=== PATIENT | male | born 1955 | race Caucasian/White ===

== ENCOUNTER 2017-02-17 21:48 | Emergency (ER) | payer BC ==
[2017-02-17] MEDS ORDERED: Albuterol/Ipratropium NEB.SOL* Albuterol 2.5 MG/Ipratropium 0.5 MG 3 ML INH SCH (23:00)
[2017-02-17] MEDS ORDERED: Albuterol 0.5% CONC NEB.SOL* 5 MG/ML 20 ml BOT ONE (23:04)
[2017-02-17] MEDS ORDERED: Ipratropium 0.5MG/2.5ML NEB* 0.5 MG/2.5 ML NEB.SOLN ONE (23:05)
[2017-02-17] MEDS ORDERED: Albuterol (2.5 MG) 0.5 % CONC 2.5 MG/0.5 ML NEB.SOLN INH ONE (23:08)
[2017-02-17] MEDS ORDERED: Ipratropium 0.5MG/2.5ML NEB* 0.5 MG/2.5 ML NEB.SOLN INH ONE (23:09)
--- NOTE | 2017-02-17 23:12 | ED ---
Rayray Hahn Salem, scribed for Jason Peoples MD on 02/17/17 at 2252 . Shortness of Breath - HPI Summary HPI Summary: Patient is a 61 y/o male who presents to the ED with SOB for the past 3 days. He reports coughing productive for green and brown sputum. He also reports gurgling when breathing and shakes [employer]. Pt takes breathing treatments at home typically and also did today [employer] with little alleviation. He visited his PCP today and received an abx shot, but was not able to pickle pumper abx px from pharmacy before it closed. He denies receiving a CXR at his PCPs office. - History of Current Complaint Chief Complaint: EDShortnessOfBreath Time Seen by Provider: 02/17/17 22:46 Hx Obtained From: Patient Onset/Duration: Gradual Onset, Lasting Days, Still Present Timing: Constant Current Severity: Moderate Aggrevating Factors: Nothing Alleviating Factors: Nothing Associated Signs & Symptoms: Cough (Productive) - Green and brown sputum. - Allergy/Home Medications Allergies/Adverse Reactions: Allergies Allergy/AdvReac Type Severity Reaction Status Date / Time Morphine Allergy Intermediate Vomiting Verified 03/13/16 21:30 environmental Allergy Congestion Uncoded 03/13/16 21:30 PMH/Surg Hx/FS Hx/Imm Hx Endocrine/Hematology History: Denies: Hx Diabetes, Hx Thyroid Disease Cardiovascular History: Denies: Hx Congestive Heart Failure, Hx Hypertension, Hx Pacemaker/ICD Respiratory History: Reports: Hx Asthma, Hx Seasonal Allergies, Hx Sleep Apnea - current CPAP user Denies: Hx Chronic Obstructive Pulmonary Disease (COPD) GI History: Reports: Hx Gastroesophageal Reflux Disease, Other GI Disorders - acid reflux Denies: Hx Ulcer History: Denies: Hx Renal Disease Musculoskeletal History: Reports: Hx Back Problems - chronic back pain, Other Musculoskeletal History - back pain r/t fall Sensory History: Denies: Hx Hearing Aid Neurological History: Reports: Other Neuro Impairments/Disorders - hx vertigo/ dizziness Psychiatric History: Denies: Hx Panic Disorder - Surgical History Surgery Procedure, Year, and Place: x2 sinus; neck removal cyst (benign) Infectious Disease History: Reports: Hx Clostridium Difficile Denies: Hx Hepatitis, Hx Human Immunodeficiency Virus (HIV), Hx of Known/ Suspected MRSA, Hx Shingles, Hx Tuberculosis, Hx Known/Suspected VRE, Hx Known/ Suspected VRSA, History Other Infectious Disease, Traveled Outside the [place] in Last 30 Days - Family History Known Family History: Positive: Other - Emphysema - father. Negative: Cardiac Disease, Diabetes - Social History Alcohol Use: None Hx Substance Use: No Substance Use Type: Reports: None Hx Tobacco Use: No Smoking Status (MU): Never Smoked Tobacco Have You Smoked in the Last Year: No Review of Systems Negative: Fever Positive: Shortness Of Breath, Cough - Productive for green and brown sputum. All Other Systems Reviewed And Are Negative: Yes Physical Exam Triage Information Reviewed: Yes Vital Signs On Initial Exam: Initial Vitals Temp Pulse Resp BP Pulse Ox 99.9 F 90 20 116/61 95 02/17/17 21:51 02/17/17 21:51 02/17/17 21:51 02/17/17 21:51 02/17/17 21:51 Vital Signs Reviewed: Yes Appearance: Positive: Well-Appearing, No Pain Distress Skin: Positive: Warm Head/Face: Positive: Normal Head/Face Inspection Eyes: Positive: JACQUELINE ENT: Positive: Hearing grossly normal Neck: Positive: Supple Respiratory/Lung Sounds: Positive: Wheezes - few bilat Cardiovascular: Positive: RRR Abdomen Description: Positive: Nontender, Soft Bowel Sounds: Positive: Present Musculoskeletal: Positive: Strength/ROM Intact Neurological: Positive: Alert, Oriented to Person Place, Time Psychiatric: Positive: Affect/Mood Appropriate - [place] Coma Scale Coma Scale Total: 15 Diagnostics - Vital Signs Vital Signs Temp Pulse Resp BP Pulse Ox 02/17/17 22:29 100.0 F 90 22 140/66 92 02/17/17 21:51 99.9 F 90 20 116/61 95 - Laboratory Result Diagrams: 02/17/17 23:00 02/17/17 23:00 Lab Statement: Any lab studies that have been ordered have been reviewed, and results considered in the medical decision making process. - Radiology CXR Radiology Interpretation Completed By: ED Physician - Negative. Re-Evaluation - Re-Evaluation First Eval Change: Improved Course/Dx - Diagnoses Provider Diagnoses: Bronchitis Discharge - Discharge Plan Condition: Stable Disposition: HOME Patient Education Materials: Acute Bronchitis (ED) Referrals: Cheo Leyva DO [Primary Care Provider] - Additional Instructions: Please continue the antibiotics previously prescribed to you by your primary care provider. Follow up with PCP for worsening of symptoms. The documentation as recorded by the Rayray gutierrez Salem accurately reflects the service I personally performed and the decisions made by me, Jason Peoples MD.
[2017-02-17 23:21] LABS: Hematocrit 40 % (42-52); Hemoglobin 13.1 g/dl (14.0-18.0); Mean Corpuscular HGB Conc 33 g/dl (31-36); Mean Corpuscular Hemoglobin 30 pg (27-31); Mean Corpuscular Volume 90 fL (80-94); Mean Platelet Volume 8 um3 (7.4-10.4); Red Blood Count 4.42 10^6/ul (4.0-5.4); Red Cell Distribution Width 13 % (10.5-15); White Blood Count 14.8 10^3/ul (3.5-10.8)
[2017-02-17 23:23] LABS: Add Diff/Slide Review? Slide Review Added; Comments Flag Yes
[2017-02-17 23:31] LABS: Albumin 3.7 g/dL (3.2-5.2); BUN/Creatinine Ratio 18.6 (8-20); Calcium 8.5 mg/dL (8.6-10.3); EGFR African American 101.9 (>60); EGFR Non-African American 79.2 (>60); Globulin 2.9 g/dL (2-4); Potassium 3.6 mmol/L (3.5-5.0); Total Bilirubin 1.4 mg/dL (0.2-1.0); Total Protein 6.6 g/dL (6.4-8.9)
[2017-02-18 01:08] VITALS: BP 173/59
--- NOTE | 2017-02-18 07:28 | RAD ---
INDICATION: Shortness of breath. COMPARISON: Comparison is made with a prior CT of the chest from April 22, 2014. TECHNIQUE: Dual-energy PA and lateral views of the chest were obtained. FINDINGS: The heart is within normal limits in size. Mediastinal and hilar contours appear within normal limits. The lungs are underinflated. There are bibasilar infiltrates. No pleural effusion is seen. There is flattening of the diaphragms most consistent with chronic obstructive pulmonary disease. There are mild compression fractures of mid dorsal vertebral bodies which are unchanged from the prior CT study. IMPRESSION: 1. BIBASILAR INFILTRATES. 2. FINDINGS SUGGESTIVE OF COPD. 3. CHRONIC DORSAL VERTEBRAL BODY COMPRESSION FRACTURES.
== END 2017-02-18 01:46 | disposition home or self-care (01) ==
LOC: ED 21:48
DX: J40 Bronchitis, not specified as acute or chronic (principal); R06.02 Shortness of breath; R05 Cough
CPT/HCPCS: 36415; 71020; 80053; 83605; 85025; 94640; 94760; 99282; J7644

== ENCOUNTER → 2018-11-25 05:30 | Day surgery (SDC) | payer BC ==
--- NOTE | 2018-11-16 19:58 | HP ---
CC: Dr. Cheo Leyva, [facility] * ADMISSION HISTORY AND PHYSICAL: DATE OF ADMISSION: 11/25/18 ATTENDING SURGEON: Dr. Royer Shelby.* (DICTATED BY CHIARA ALLEN) CHIEF COMPLAINT: Right upper quadrant abdominal pain. HISTORY OF PRESENT ILLNESS: This is a 63-year-old male, who underwent laparoscopic cholecystectomy in October 2016. He notes that beginning about 5 months after surgery he began to experience intermittent right upper quadrant abdominal pain. This does not occur daily and does not seem to have any relationship to food ingestion or activity including weightlifting workouts. He specifically denies nausea or vomiting or change in his urine or stools. He has had chronic alternating constipation and diarrhea with diarrhea being somewhat more prominent since his gallbladder surgery. He describes the pain as a soreness in the right upper quadrant, which can last for up to an hour, but without radiation. He can go as much as 2 weeks in between episodes. He was seen in March of last year by Dr. Shelby and again more recently on 11/02/18. A previous ultrasound on 03/30/18 showed fatty liver changes and a normal right kidney as well as a normal common bile duct. An upper GI study was done on 06/30/18 in anticipation of possible bariatric surgery that was a normal study. He did have some lab work done on 03/10/18 that showed a normal CBC and CMP including normal liver function tests. Magnesium was slightly low at 1.8. TSH and B12 levels were normal. Vitamin D was low normal at 20.9. Urinalysis was remarkable for 2+ blood and urine C and S was no significant growth. I did discuss with him the implications of the microscopic hematuria and that he should have a repeat urinalysis and further discussion with Dr. Leyva. On exam, Dr. Shelby has noted the presence of a nontender reducible umbilical hernia. The patient also has diastasis recti, but no palpable mass or defect in the area in question, which is just below the subxiphoid laparoscopic incision and to the right of midline. Dr. Shelby has discussed with him the indications for surgery, the risks, benefits, and alternatives and the patient would like to proceed as scheduled with diagnostic laparoscopy, open repair of umbilical hernia and possible repair of ventral hernia with mesh. PAST MEDICAL HISTORY: Asthma (primarily childhood without any recent exacerbations), chronic rhinitis and sinusitis, restless legs syndrome, obstructive sleep apnea (on CPAP), insomnia, GERD and esophagitis, obesity. PAST SURGICAL HISTORY: Previous surgeries include sinus surgery x2; tonsillectomy remotely; laparoscopic cholecystectomy with intraoperative cholangiogram, October 2016, at [facility]. No reported surgical complications. CURRENT MEDICATIONS: 1. Ropinirole 1 mg 1 tablet every 6 hours. 2. Omeprazole 20 mg once daily. 3. Advair 250/50 one puff once daily. 4. ProAir HFA MDI p.r.n. (uses rarely). 5. Fluticasone nasal spray 2 sprays each nostril once daily. 6. Multivitamin once daily. 7. Magnesium 500 mg 2 tablets once daily. 8. Vitamin B complex once daily. 9. Cranberry extract once daily. 10. Zolpidem 10 mg q.h.s. p.r.n. insomnia (uses approximately once weekly). DRUG ALLERGIES: MORPHINE (vomiting). FAMILY HISTORY: Negative for anesthesia problems, bleeding or clotting disorders. 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 He works out regularly including both resistance as well as cardio exercises. He denies use of tobacco or alcohol. REVIEW OF SYSTEMS: General: No recent constitutional symptoms or acute illnesses other than described in the HPI. His weight has been stable other than for an intentional 12-pound weight loss in the past 6 months. HEENT: No problems reported. Cardiovascular: No chest pain, palpitations, history of hypertension, or heart murmur. Respiratory: No recent exacerbations of his asthma. No shortness of breath or chronic cough. GI: As above per HPI. Colonoscopy done in 2017, normal by the patient's report. : No specific problems reported. He does have nocturia x1 to 2, but denies history of gross hematuria. Endocrine: No diabetes or thyroid dysfunction. Remainder of review of systems is negative. PHYSICAL EXAMINATION GENERAL: Well-nourished, well-developed, obese male, in no acute distress. VITAL SIGNS: Height 67 inches, weight 245 pounds, BMI 38.4. Blood pressure 122 /78, pulse 72, respirations 18. HEENT: Pupils are equal, round, and reactive. EOMs intact. No conjunctival pallor. Oropharynx: No intraoral lesions. Mucous membranes moist. NECK: No lymphadenopathy, thyromegaly, or masses. LUNGS: Clear to auscultation. No wheezes. HEART: Regular rate and rhythm. No murmur noted. ABDOMEN: Well-healed laparoscopic incision sites. Visible and palpable bulge at the umbilicus, which is nontender and reducible. He does demonstrate diastasis recti. The aforementioned area of tenderness in the right upper quadrant seems to be located just inferior to the subxiphoid laparoscopic incision, which is just off the midline to the right. I am unable to elicit any tenderness on exam today and do not appreciate any additional abdominal masses. GENITALIA: Not examined. Inguinal hernia is not checked today. RECTAL: Not done. BACK: No spinous process or CVA tenderness. EXTREMITIES: No edema. NEUROLOGICAL: Grossly intact. SKIN: Warm and dry. No suspicious rashes or lesions noted. IMPRESSION: Right upper quadrant abdominal pain. PLAN: Diagnostic laparoscopy; open repair of umbilical hernia; possible repair of ventral hernia with mesh. CHIARA ALLEN [id number]/[facility] #: [id number] ASHLEY
[~2018-11-25 05:30] MED LIST: Albuterol 2.5 MG/3 ML NEB.SOL* (0.083%) INH ONE; Atracurium* 10 MG/ML 10 ML VIAL ONE; Bacitracin IV* 50,000 UNITS INJ ONE; Bacitracin OINTMENT* 0.5% 0.5 oz TUBE ONE; Buffered Lidocaine 1% SYRIN* 1 ML/SYRINGE INTRADERM ONE; Bupivacaine 0.25% W/EPI* 10 ML SDV ONE; Bupivacaine 0.5% W/EPI SDV* 30 ML VIAL ONE; Bupivacaine 0.5%* 50 ML VIAL ONE; Dexamethasone IV* 4 MG/ML 1 ML (4 MG) ONE; EPHEDrine (Pressors)* 50 MG/ML VIAL ONE; Famotidine IV* 10 MG/ML 2 ML (20 mg) IV ONE; Famotidine IV* 10 MG/ML 2 ML (20 mg) ONE; Glycopyrrolate IV* 0.2 MG/ML 1 ML VIAL ONE; KETAMINE HCL* 50 MG/ML 10 ML VIAL ONE; Ketorolac INJ* 30 MG/ML 1 ML VIAL ONE; Lactated Ringers 1000 ML Bag* 1,000 ML IV SCH; Lidocaine 1% INJ* 10 MG/ML 30 ML SDV ONE; Lidocaine 2% PF * 5 ML VIAL ONE; Midazolam* 1 MG/ML 5 ML VIAL (5 MG) ONE; Naloxone* 0.4 MG/ML 1 ML VIAL IV PRN; Ondansetron INJ* 2 MG/ML VIAL IV PRN; Ondansetron INJ* 2 MG/ML VIAL ONE; Propofol* 10 MG/ML 20 ML BTL ONE; Rocuronium* 10 MG/ML VIAL ONE; Ropivacaine (OR use only) 2 MG/ML 10 ML ONE; Succinylcholine* 20 MG/ML 10 ML VIAL ONE; ceFAZolin 2 GM PREMIX in ORs 2 GM/50 ML BAG IVPB ONE; fentaNYL* 50 MCG/ML 2 ML VIAL (100 MCG VIAL) ONE; fentaNYL* 50 MCG/ML 5 ML VIAL (250 MCG VIAL) ONE; metroNIDAZOLE IV 500 MG/100ML* 500 MG/100 ML BAG IVPB ONE; oxyCODONE/Acetamin 5/325 MG* TAB ONE; oxyCODONE/Acetamin 5/325 MG* TAB PO PRN
--- NOTE | 2018-11-25 11:17 | OP ---
Operative Report - Blank - Operative Report Date of Operation: 11/25/18 Note: Brief Operative Note Preop Dx: Umbilical hernia; RUQ abdominal pain Postop Dx: umbilical and epigastric hernias Procedure: diagnostic laparoscopy; open repair umbilical and epigastric hernias (primary) Anesthesia: GET Surgeon: Afsaneh Character Artist: CHIARA Caicedo Fluids: 1900 ml EBL: none Specimen: hernia sac Drains: none Findings: dictated
[2018-11-25 12:24] VITALS: BP 107/67
--- NOTE | 2018-11-25 13:02 | OP ---
CC: Primary Care Doctor, Dr. Leyva; [facility] * DATE OF OPERATION: 11/25/18 - SDS DATE OF : 59 SURGEON: Dr. Shelby. SUBPOENA SERVER: CHIARA Gupta. ANESTHESIOLOGIST: Dr. Ramires. ANESTHESIA: General anesthesia. PRE-OP DIAGNOSES: Umbilical hernia and abdominal pain, right upper quadrant. POST-OP DIAGNOSES: Umbilical hernia and epigastric incisional hernia. PROCEDURE: Diagnostic laparoscopy, open repair of umbilical hernia, and epigastric incisional hernia. ESTIMATED BLOOD LOSS: Minimal blood loss. FLUIDS: 1900 cc. SPECIMEN: Epigastric hernia sac. DRAINS: None. DESCRIPTION OF PROCEDURE: Patient was identified in the preoperative area. I discussed the case with him again and consent was signed. He was marked accordingly as well as I marked the patient's maximal point of pain at the right upper quadrant. He was then taken to the operating room and placed on the operating table in the supine position. Preoperative antibiotics were given. Sequential devices were placed on bilateral lower extremities and general anesthesia was induced. Patient's abdomen was clipped of hair and prepped and draped in the standard surgical fashion. A time-out was performed. An infraumbilical incision was made. This was deepened down to hernia sac. I isolated the umbilicus and the umbilical skin was sharply dissected off the hernia sac. Hernia sac was entered and it was omentum. This was reduced back into the abdomen, and then a 5 mm trocar inserted into the abdomen which was allowed to insufflate to a pressure of 15 mmHg. Patient tolerated the insufflation well. Laparoscope was inserted through this. There was no evidence of injury from the trocar insertion or from the Veress needle. Omentum was plastered to the anterior abdominal wall. It appeared that the trocar was in this site and we manipulated the trocar until we could see the proper orientation of the anterior abdominal wall. I did not appreciate a hernia at the right upper quadrant port site incision, where patient had his maximal pain. We placed a 5 mm trocar in the right lateral positioning. Camera was shifted over this and then we could see promptly an incisional hernia at the area in the epigastrium. This was both bluntly and sharply reduced, taking a fair amount of omentum out of the hernia sac and dropping this back down. Review of the abdomen showed normal-appearing liver. No other lesions elsewhere. It was at this point we decided to do a primary repair of the umbilical hernia and also of this epigastric incisional hernia. Maintaining pneumoperitoneum, I identified the epigastric hernia sac and bluntly reduced this from the subcutaneous tissues. This was cleared off right to the base of the defect and lysed and passed off as specimen. The defect itself was just under a centimeter as we cleared off the edges. I primarily closed this with #1 Ethibond sutures using 2 simple sutures to do this. We did a similar 2-suture simple closure of #1 Ethibond at the umbilicus. Next, we re-insufflated the abdomen and reviewed the closure sites. We did not draw any structures into the sutures and then allowed the abdomen to collapse again. We irrigated the wound. Hemostasis was achieved. The umbilical skin was tacked down with 2-0 Vicryl stitch, and then we closed the incisions with 3- 0 Vicryl subcuticular sutures followed by a running 4-0 Monocryl subcuticular suture; 4-0 Monocryl was also placed at the additional 5 mm trocar in the lateral position. Sterile dressing was applied. Patient tolerated the procedure well and was transferred to PACU. [id number]/[facility] #: [id number] ASHLEY
[2018-11-25] MEDS: fentaNYL* 50 MCG/ML 2 ML VIAL (100 MCG VIAL) IV PRN ×2 (13:45→13:58)
== END | disposition home or self-care (01) ==
LOC: OR 05:30
PROVIDERS: ATTEND Surgery
DX: K43.2 Incisional hernia without obstruction or gangrene (principal); K42.9 Umbilical hernia without obstruction or gangrene; R10.11 Right upper quadrant pain; G47.33 Obstructive sleep apnea (adult) (pediatric); G25.81 Restless legs syndrome; K21.0 Gastro-esophageal reflux disease with esophagitis; E66.9 Obesity, unspecified; K76.0 Fatty (change of) liver, not elsewhere classified
CPT/HCPCS: 88302; A9270-GY; J0330; J0690; J1100; J1885; J2250; J2405; J2704; J2795; J3010; J3490

== ENCOUNTER 2018-11-26 23:36 | Inpatient (IN) | payer BC ==
--- OUTSIDE RECORDS SUMMARY | 2018-11-27 | XMS REPORT | Continuity of Care Document ---
:1955 External Reference #:[id number] Author Name MaribethNatasha scruggsbeth Care Team Providers Name Role Phone Cheo Leyva DO Primary Care Physician Unavailable Payers Type Date Identification Numbers Payment Provider Subscriber Policy Number: [id number] BS Facets Dante Shook PayID: [id number] [address] [address] [place] [address] Advance Directives Description No Information Available Problems Date Description Provider Status Onset: 08/30/2013 Electrocardiogram abnormal Bienvenido Clarke M.D., [facility], Active [facility] Onset: 08/30/2013 Dizziness and giddiness Bienvenido Clarke M.D., [facility], Active [facility] Onset: 08/30/2013 Chest pain Bienvenido Clarke M.D., [facility], Active [facility] Onset: 10/06/2005 Obstructive sleep apnea of adult Jane Cortez DNP, RN, Active [employer] Onset: 10/04/2014 Periodic leg movements of sleep Jane Cortez DNP, RN, Active [employer] Onset: 10/04/2014 Restless legs Jane Cortez DNP, RN, Active [employer] Onset: 12/19/2014 Headache Kymberly Lara M.D. Active Onset: 04/03/2015 Hyperlipidemia Bienvenido Clarke M.D., [facility], Active [facility] Onset: 07/23/2016 Insomnia Jane Cortez DNP, RN, Active [employer] Family History Date Family Member(s) Problem(s) Comments General Diabetes cousin General Parkinson's Disease aunt Social History Type Date Description Comments Sex Unknown Lives With Occupation Currently Working Occupation [employer] Work Status Currently Working [employer] ETOH Use Denies alcohol use Tobacco Use Start: Unknown Patient has never smoked Recreational Drug Use Denies Drug Use Smoking Status Reviewed: 11/02/18 Patient has never smoked Exercise Type/Frequency Exercises regularly walks, lifts weights Allergies, Adverse Reactions, Alerts Date Description Reaction Status Severity Comments 08/30/2013 Morphine Nausea/vomiting Active Medications Medication Date Status Form Strength Qnty SIG Indications Ordering Provider Ropinirole HCL 07/26 Active Tablets 0.25mg 120ta 2 MG G47.61 bs (07/23/17) Dana, 1 tabLET By GREG, RN, Mouth when [facility] symptoms begin and 1 tabLET 2 hours before bed, 1-2 at Bedtime as Needed. MDD 4 Advair Diskus Active Aerosol 250-50mcg 1unit 1 Unknown / /Dose s inhalation twice daily prn Magnesium Active Tablets 250mg 30tab 1 po qd s Fluticasone Active Suspension 50mcg/Act 2 sprays [place], Propionate each Mallika nostril CHIARA Mendez Omeprazole Active Capsules DR 20mg 90cap 1 by mouth Unknown s every day Vitamin B Active Tablets 1 by mouth Unknown Complex every day Zolpidem Active Tablets 10mg [place], Tartrate / Cheo Luis DO Proair HFA Active Aerosol 108(90Bas Carlene-He /0000 e) ktor, mcg/Act CHIARA Oliva Multi Vitamin Active Tablets 1 by mouth Unknown every day Azithromycin 07/22 Hx Tablets 250mg 2 tabs by mouth every - day x1 day, 08/06 1 tab by mouth every day x 4 days Zaleplon 01/04 Hx Capsules 5mg 10cap 1 tab if G47.33 s need to reece Cortez DNP, RN, sleep at [facility] 5-6 pm due to schedule. Must use at least 6-7 [address]. Amoxicillin 09/30 Hx Tablets 875mg 14tab 1 by mouth s twice a day - 12/18 Nortriptyline 07/14 Hx Capsules 25mg 90cap 2 caps po 784.0 Kymberly HCL /2013 s qhs Duyen Lara M.D. 12/18 Rhinocort Aqua 00/00 Hx Suspension 32mcg/Act 1unit 1 spray Unknown /0000 s ineach - nostril bid 04/15 Albuterol 00/ Hx prn Unknown Sulfate /0000 - 04/15 Proair HFA 00/ Hx Aerosol 108(90Bas 1unit 2 puffs po Unknown /0000 e) s q4h prn - mcg/Act 04/15 Multivitamins 00/ Hx Capsules 30cap 1 capsule Unknown /0000 s daily - 04/15 Calcium 1000 + 00/ Hx Tablets 1000-800m 1 po qd Unknown D /0000 g-Unit - 07/23 Vitamin D 00 Hx Capsules 2000Unit 1 po qd Unknown /0000 - 07/23 Vitamin C 00 Hx Chewtabs 500mg 1 po qd Unknown /0000 - 04/14 Stool Softener 00 Hx Capsules 100mg 60cap 1 po qd Unknown /0000 s - 04/15 Tylenol Extra Hx Tablets 500mg 100ta 2 tabs po Unknown Strength /0000 bs prn Ipratropium Hx Solution 0.5-2.5(3 inhale prn [place], [place]/Albuter /0000 )mg/3ML via Mallika ol Sulfate nebulizer S., PA Ropinirole HCL Hx Tablets 0.25mg 60tab 1 po 2 Unknown /0000 s hours - before 07/26 bedtime and 1 additional tab po prn Medications Administered in Office Medication Date Status Form Strength Qnty SIG Indications Ordering Provider Technetium TC Administered Injection Sujatha [id number] Jessica Gonsalves M.D. Per Unit Dose Up To 40 Millicuries Immunizations Description No Information Available Vital Signs Date Vital Result Comment 11/02/2018 10:55am Height 67 inches 5'7" Weight 252.00 lb Heart Rate 68 /min BP Systolic 130 mmHg BP Diastolic 68 mmHg Respiratory Rate 18 /min Body Temperature 97.0 F BMI (Body Mass Index) 39.5 kg/m2 07/22/2018 11:00am Height 67 inches 5'7" Weight 259.00 lb Heart Rate 64 /min BP Systolic Sitting 114 mmHg Lue large cuff BP Diastolic Sitting 80 mmHg Lue large cuff Respiratory Rate 16 /min O2 % BldC Oximetry 93 % BMI (Body Mass Index) 40.6 kg/m2 04/02/2018 9:18am Heart Rate 76 /min Respiratory Rate 16 /min Body Temperature 98.3 F 2018 10:54am Height 67 inches 5'7" Weight 256.00 lb Heart Rate 74 /min BP Systolic 116 mmHg BP Diastolic 68 mmHg Respiratory Rate 16 /min Body Temperature 97.7 F BMI (Body Mass Index) 40.1 kg/m2 07/22/2017 11:26am Height 68 inches 5'8" Weight 255.00 lb Heart Rate 80 /min BP Systolic 110 mmHg BP Diastolic 68 mmHg Respiratory Rate 16 /min BMI (Body Mass Index) 38.8 kg/m2 07/23/2016 11:24am Height 68 inches 5'8" Weight 249.00 lb Heart Rate 72 /min BP Systolic 130 mmHg BP Diastolic 88 mmHg Respiratory Rate 14 /min O2 % BldC Oximetry 95 % BMI (Body Mass Index) 37.9 kg/m2 04/03/2015 10:52am Height 68 inches 5'8" Weight 249.00 lb Heart Rate 66 /min 74 BP Systolic Sitting 130 mmHg right arm, reg cuff BP Diastolic Sitting 92 mmHg right arm, reg cuff BP Systolic Standing 140 mmHg right arm, reg cuff BP Diastolic Standing 96 mmHg right arm, reg cuff Respiratory Rate 20 /min BMI (Body Mass Index) 37.9 kg/m2 Ejection Fraction 50-55% 08/31/13 01/04/2015 11:04am Height 68 inches 5'8" Weight 245.00 lb Heart Rate 68 /min BP Systolic Sitting 128 mmHg BP Diastolic Sitting 64 mmHg Respiratory Rate 18 /min O2 % BldC Oximetry 97 % BMI (Body Mass Index) 37.2 kg/m2 12/19/2014 11:58am Height 67 inches 5'7" Heart Rate 68 /min BP Systolic Sitting 112 mmHg BP Diastolic Sitting 66 mmHg Respiratory Rate 16 /min 10/04/2014 9:34am Height 67 inches 5'7" Weight 245.00 lb Heart Rate 70 /min BP Systolic Sitting 134 mmHg BP Diastolic Sitting 72 mmHg Respiratory Rate 18 /min O2 % BldC Oximetry 98 % BMI (Body Mass Index) 38.4 kg/m2 06/23/2014 11:21am Height 67 inches 5'7" Weight 251.00 lb Heart Rate 84 /min BP Systolic Sitting 112 mmHg BP Diastolic Sitting 68 mmHg Respiratory Rate 16 /min BMI (Body Mass Index) 39.3 kg/m2 04/18/2014 10:17am Height 66 inches 5'6" Weight 245.00 lb Heart Rate 70 /min BP Systolic Sitting 120 mmHg BP Diastolic Sitting 70 mmHg Respiratory Rate 16 /min BMI (Body Mass Index) 39.5 kg/m2 08/30/2013 10:41am Height 66 inches 5'6" Weight 245.00 lb Heart Rate 7882 /min BP Systolic 114 mmHg right arm, large cuff BP Diastolic 80 mmHg right arm, large cuff BP Systolic Sitting 116 mmHg left arm, large cuff BP Diastolic Sitting 78 mmHg left arm, large cuff BP Systolic Standing 106 mmHg left arm, large cuff BP Diastolic Standing 76 mmHg left arm, large cuff Respiratory Rate 16 /min BMI (Body Mass Index) 39.5 kg/m2 Results Test Date Facility Test Result H/L Range Note Laboratory test 03/10/2018 [facility] Magnesium 1.8 mg/dL Low 1.9-2.7 finding [address] [place] [address] [phone] TSH (Thyroid Stim Horm) 1.83 mcIU/mL N 0.34-5.60 Vitamin B12 445 pg/mL N 180-914 1 Vitamin D Total 25(Oh) 20.9 ng/mL N 20-50 Lipid Profile 03/10/2018 [facility] Triglycerides 80 mg/dL 2 (Trig/Chol/HDL) [address] [place] [address] [phone] Cholesterol 202 mg/dL 3 HDL Cholesterol 52.2 mg/dL 4 LDL Cholesterol 134 mg/dL 5 Comp Metabolic Panel 03/10/2018 [facility] Sodium 141 mmol/L N 139-145 [address] [place] [address] [phone] Potassium 4.3 mmol/L N 3.5-5.0 Chloride 107 mmol/L N 101-111 Co2 Carbon Dioxide 27 mmol/L N 22-32 Anion Gap 7 mmol/L N 2-11 Glucose 100 mg/dL N 70-100 Blood Urea Nitrogen 18 mg/dL N 6-24 Creatinine 1.10 mg/dL N 0.67-1.17 BUN/Creatinine Ratio 16.4 N 8-20 Calcium 9.1 mg/dL N 8.6-10.3 Total Protein 6.5 g/dL N 6.4-8.9 Albumin 4.0 g/dL N 3.2-5.2 Globulin 2.5 g/dL N 2-4 Albumin/Globulin Ratio 1.6 N 1-3 Total Bilirubin 0.70 mg/dL N 0.2-1.0 Alkaline Phosphatase 58 U/L N 34-104 Alt 33 U/L N 7-52 Ast 24 U/L N 13-39 Egfr Non- 68.1 >60 Egfr 87.5 >60 6 CBC No Diff 03/10/2018 [facility] White Blood 7.8 10^3/uL N 3.5-10.[address] [place] [address] [phone] Red Blood Count 4.98 10^6/uL N 4.0-5.4 Hemoglobin 15.2 g/dL N 14.0-18.0 Hematocrit 45 % N 42-52 Mean Corpuscular Volume 90 fL N 80-94 Mean Corpuscular Hemoglobin 31 pg N 27-31 Mean Corpuscular HGB Conc 34 g/dL N 31-36 Red Cell Distribution Width 13 % N 10.5-15 Platelet Count 240 10^3/uL N 150-450 Mean Platelet Volume 8.6 um3 N 7.4-10.4 Urine Culture And 03/10/2018 [facility] Urine Culture SEE RESULT [address] [place] [address] [phone] Urinalysis Profile 03/10/2018 [facility] Urine Color Yellow [address] [place] [address] [phone] Urine Appearance Cloudy Urine Specific [place] 1.018 N 1.010-1.030 Urine pH 5.0 N 5-9 Urine Urobilinogen Negative Negative Urine Ketones Negative Negative Urine Protein Negative Negative Urine Leukocytes Negative Negative Urine Blood 2+ Abnormal Negative Urine Nitrite Negative Negative Urine Bilirubin Negative Negative Urine Glucose Negative Negative Urine White Blood Cell Trace(0-5/hpf) Absent Urine Red Blood Cell Trace(0-2/hpf) Absent Urine Bacteria Absent Absent Urine Squamous Epithelial Cell Present Abnormal Absent 1 Normal Range 180 to 914 Indeterminate Range 145 to 180 Deficient Range <145 2 Desirable: <150 Borderline High: 150-199 High: 200-499 Very High: >500 3 Desirable: <200 Borderline High: 200-239 High: >239 4 Low: <40 Desirable: 40-60 High: >60 5 Desirable: <100 Near Optimal: 100-129 Borderline High: 130-159 High: 160-189 Very High: >189 6 Because ethnic data is not always readily available, this report includes an eGFR for both -Americans and non- Americans. The National Kidney Disease Education Program (NKDEP) does not endorse the use of the MDRD equation for patients that are not between the ages of 18 and 70, are , have extremes of body size, muscle mass, or nutritional status, or are non- or non-. According to the National Kidney Foundation, irrespective of diagnosis, the stage of the disease is based on the level of kidney function: Stage Description GFR(mL/min/1.73 m(2)) 1 Kidney damage with normal or decreased GFR 90 2 Kidney damage with mild decrease in GFR 60-89 3 Moderate decrease in GFR 30-59 4 Severe decrease in GFR 15-29 5 Kidney failure <15 (or dialysis) 7 SEE RESULT BELOW Name: DANTE SHOOK : [address]: Dante Shelby MD Acct: [id number] Unit: [id number] AGE: 63 Location: [facility] Re03/10/18 SEX: M Status: REG REF SPEC: [id number] FARA: 03/10/18 [facility] DR: Dante Shebly MD REQ: [id number] RECD: 03/10/18 STATUS: MAGDIEL VERA DR: Cheo Leyva DO _ SOURCE: URINE SPDESC: ORDERED: Urine Culture Procedure Result Reported Site Urine Culture Final 03/11/18- 1345 ML No Growth (<1,000 CFU/mL) * ML - Main Lab . END OF REPORT DEPARTMENT OF PATHOLOGY, [address] [place] [address] James Espinal M.D. Director [facility] # [id number] Procedures Date Code Description Status 04/03/2015 66639 EKG Tracing & Interpretation Completed 04/11/2014 25392 Polysomnography Sleep Staging 4+ Parameters W/Cpap Completed 09/01/2013 24073 Stress Test Completed 09/01/2013 24364 Myocardial Perfusion Imaging Tomographic (Spect) Multiple Completed Studies 08/31/2013 24535 ECHO Transthorasic Realtime 2D W Doppler & Color Flow Hosp Completed 08/30/2013 71663 EKG Tracing & Interpretation Completed Encounters Type Date Location Provider Dx Diagnosis Office Visit 07/22/2018 Pulmonology And Jane Cortez, G47.33 Obstructive sleep 11:15a [facility] G[facility], [employer] apnea (adult) Ben (pediatric) G47.00 Insomnia, unspecified Office Visit 04/02/2018 9:15a Surgical Dante P. R10.11 Right upper [facility] Ben Shelby MD, quadrant pain FACS E66.9 Obesity, unspecified K43.2 Incisional hernia without obstruction or gangrene Office Visit 2018 Surgical Dante Giles M62.00 Separation of muscle 8:30a Associates [facility] MD Afsaneh, (nontraumatic), [facility] FACS unspecified site K42.9 Umbilical hernia without obstruction or gangrene E66.9 Obesity, unspecified R10.11 Right upper quadrant pain Office Visit 07/22/2017 Pulmonology And Jane G47.33 Obstructive sleep 11:15a [facility] GREG Cortez RN, apnea (adult) Ben [employer] (pediatric) Office Visit 07/23/2016 Pulmonology And Jane G47.33 Obstructive sleep 11:15a [facility] GREG Cortez RN, apnea (adult) [facility] [employer] (pediatric) G47.61 Periodic limb movement disorder G47.00 Insomnia, unspecified J32.9 Chronic sinusitis, unspecified Office Visit 04/03/2015 Anny Clarke, 794.31 Electrocardiogram 11:00a [facility], (ECG) (EKG) Abnormal [employer] AT [facility] 272.4 Hyperlipidemia Other Unspec Office Visit 01/04/2015 Pulmonology And Jane 327.23 Obstructive Sleep 11:00a [facility] GREG Cortez RN, Apnea Adult & [facility] [employer] Pediatric 327.51 Periodic Limb Movement Disorder Office Visit 12/19/2014 [facility] Kymberly Lara, 784.0 Headache 11:30a Services Of Ben Bradley Office Visit 10/04/2014 Pulmonology And Jane 327.23 Obstructive Sleep 9:45a [facility] GREG Cortez, RN, Apnea Adult & [facility] Pediatric 327.51 Periodic Limb Movement Disorder Office Visit 06/23/2014 11:00a [facility] Kymberly Lara, 784.0 Headache Services Of [facility] Kirk 780.52 Insomnia Unspecified 327.23 Obstructive Sleep Apnea Adult & Pediatric Office Visit 04/18/2014 10:00a [facility] Kymberly Lara, 784.0 Headache Services Of [facility] Kikr 780.52 Insomnia Unspecified 355.1 Meralgia Paresthetica Office Visit 01/28/2014 3:24p Sleep Disorder Cristian SK. 327.23 Obstructive Sleep Center Kirk Barnhart Apnea Adult & Pediatric 333.94 Restless Leg Syndrome Office Visit 08/30/2013 [place] Bienvenido Clarke, 794.31 Electrocardiogram 10:15a [facility], FACC, (ECG) (EKG) Abnormal [employer] Operator AT [facility] 780.4 Dizziness & Giddiness 786.50 Pain Chest Unspec Plan of Treatment Future Appointment(s):12/02/2018 11:00 am - Brittany Novak NP at [facility]11/16/2018 11:00 am - CHIARA Lindquist at [facility]11/25/2018 7:30 am - Dante Shelby MD, FACS at [facility]07/26/2019 10:00 am - Jane Cortez DNP, RN, [facility] at [facility]11/02/2018 - Dante Shelby MD, FACSR10.11 Right upper quadrant painK42.9 Umbilical hernia without obstruction or gangreneFollow up:operating room
--- OUTSIDE RECORDS SUMMARY | 2018-11-27 | XMS REPORT | Continuity of Care Document ---
:1955 External Reference #:[id number] Author Name Magdalene Rios Care Team Providers Name Role Phone Cheo Leyva DO Primary Care Physician Unavailable Payers Date Identification Numbers Payment Provider Subscriber Policy Number: [id number] BS [employer]ets Dante Shook PayID: [id number] [address] [address] [place] [address] Advance Directives Description No Information Available Problems Date Description Provider Status Onset: 08/30/2013 Electrocardiogram abnormal Bienvenido Clarke M.D., [facility], Active [facility] Onset: 08/30/2013 Dizziness and giddiness Bienvenido Clarke M.D., [facility], Active [facility] Onset: 08/30/2013 Chest pain Bienvenido Clarke M.D., [facility], Active [facility] Onset: 10/06/2005 Obstructive sleep apnea of adult Jane Cortez DNP, RN, Active [employer] Onset: 10/04/2014 Periodic leg movements of sleep Jane Cortez DNP, RN, Active [employer] Onset: 10/04/2014 Restless legs Jane Cortez DNP, RN, Active [employer] Onset: 12/19/2014 Headache Kymberly Lara M.D. Active Onset: 04/03/2015 Hyperlipidemia Bienvenido Clarke M.D., [facility], Active [facility] Onset: 07/23/2016 Insomnia Jane Cortez DNP, RN, Active [employer] Family History Date Family Member(s) Observation Comments General Diabetes cousin General Parkinson's Disease aunt Social History Type Date Description Comments Sex Unknown Lives With Occupation Currently Working Occupation [employer] Work Status Currently Working [employer] ETOH Use Denies alcohol use Tobacco Use Start: Unknown Patient has never smoked Recreational Drug Use Denies Drug Use Smoking Status Reviewed: 11/16/18 Patient has never smoked Exercise Type/Frequency Exercises regularly walks, lifts weights Allergies, Adverse Reactions, Alerts Date Description Reaction Status Severity Comments 08/30/2013 Morphine Nausea/vomiting Active Medications Medication Date Status Form Strength Qnty SIG Indications Ordering Provider Ropinirole HCL 07/26/20 Active Tablets 0.25mg 120ta 2 MG G47.61 Jane 14 bs (07/23/17 Dana, ) 1 GREG, RN, tabLET By [facility] Mouth when symptoms begin and 1 tabLET 2 hours before bed, 1-2 at Bedtime as Needed. MDD 4 Advair Diskus Active Aerosol 250-50mcg 1unit 1 Unknown 00 /Dose s inhalatio n twice daily prn Magnesium Active Tablets 250mg 30tab 1 po qd Unknown 00 s Fluticasone Active Suspension 50mcg/Act 2 sprays [place], Propionate 00 each CHIARA Mendoza qamichael Omeprazole Active Capsules DR 20mg 90cap 1 by Unknown 00 s mouth every day Vitamin B Active Tablets 1 by Unknown Complex 00 mouth every day Zolpidem Active Tablets 10mg 1 tab at [place], Tartrate 00 night as Cheo needed DO Toby Proair HFA Active Aerosol 108(90Bas as needed Carlene-Mark 00 e) ktor, mcg/Act CHIARA Oliva Multi Vitamin Active Tablets 1 by Unknown 00 mouth every day Azithromycin 07/22/20 Active Tablets 250mg 2 tabs by Unknown 16 mouth every day x1 day, 1 tab by mouth every day x 4 days Zaleplon 01/05/20 Hx Capsules 5mg 10cap 1 tab if G47.33 Jane 15 - s need to Dana, Unknown initiate GREG, ALEJA, sleep at [facility] 5-6 pm due to schedule. Must use at least 6-7 hours prior to driving. Amoxicillin 09/30/20 Hx Tablets 875mg 14tab 1 by Unknown 14 - s mouth 03/15/20 twice a 15 day Nortriptyline 04/18/20 Hx Capsules 25mg 90cap 2 caps po 784.0 Kymberly HCL 14 - s qhs Cowdery, 12/19/19 M.D. 15 Rhinocort Aqua Hx Suspension 32mcg/Act 1unit 1 spray Unknown - s ineach 04/15/20 nostril 14 bid Albuterol Hx prn Unknown Sulfate - 04/15/20 14 Proair HFA Hx Aerosol 108(90Bas 1unit 2 puffs Unknown - e) s po q4h 04/15/20 mcg/Act prn 14 Multivitamins Hx Capsules 30cap 1 capsule Unknown 00 - s daily 04/15/20 14 Calcium 1000 + Hx Tablets 1000-800m 1 po qd Unknown D 00 - g-Unit 07/23/20 17 Vitamin D Hx Capsules 2000Unit 1 po qd Unknown - 07/23/20 17 Vitamin C Hx Chewtabs 500mg 1 po qd Unknown - 04/14/20 14 Stool Softener Hx Capsules 100mg 60cap 1 po qd Unknown 00 - s 04/15/20 14 Tylenol Extra Hx Tablets 500mg 100ta 2 tabs po Unknown Strength 00 - bs prn Unknown Ipratropium Hx Solution 0.5-2.5(3 inhale [place], [place] 00 - )mg/3ML prn via Mallika rol Sulfate Unknown nebulizer S., PA Ropinirole HCL Hx Tablets 0.25mg 60tab 1 po 2 Unknown 00 - s hours 07/26/20 before 14 bedtime and 1 additiona l tab po prn Medications Administered in Office Medication Date Status Form Strength Qnty SIG Indications Ordering Provider Technetium TC Administered Injection Sujatha 99M Jessica Martinez M.D. Per Unit Dose Up To 40 Millicuries Immunizations Description No Information Available Vital Signs Date Vital Result Comment 11/16/2018 10:54am Height 67 inches 5'7" Weight 245.00 lb Heart Rate 72 /min BP Systolic Sitting 122 mmHg BP Diastolic Sitting 78 mmHg Respiratory Rate 18 /min Body Temperature 97.9 F BMI (Body Mass Index) 38.4 kg/m2 11/02/2018 10:55am Height 67 inches 5'7" Weight [...] Result H/L Range Note Laboratory test 03/10/2018 [facility] Magnesium 1.8 mg/dL Low 1.9-2.7 finding [address] [place] [address] [phone] TSH (Thyroid Stim Horm) 1.83 mcIU/mL N 0.34-5.60 Vitamin B12 445 pg/mL N 180-914 1 Vitamin D Total 25(Oh) 20.9 ng/mL N 20-50 Lipid Profile 03/10/2018 [facility] Triglycerides 80 mg/dL 2 (Trig/Chol/HDL) [address] [place] [address] [phone] Cholesterol 202 mg/dL 3 HDL Cholesterol 52.2 mg/dL 4 LDL Cholesterol 134 mg/dL 5 Comp Metabolic Panel 03/10/2018 [facility] Sodium 141 mmol/L N 139-[address] [place] [address] [phone] Potassium 4.3 mmol/L N 3.5-5.0 Chloride 107 [...] 87.5 >60 6 CBC No Diff 03/10/2018 [facility] White Blood 7.8 10^3/uL N 3.5-10.[address] [place] [address] [phone] Red Blood Count 4.98 10^6/uL N 4.0-5.4 [...] um3 N 7.4-10.4 Urine Culture And 03/10/2018 [facility] Urine Culture SEE RESULT [address] [place] [address] [phone] Urinalysis Profile 03/10/2018 [facility] Urine Color Yellow [address] [place] [address] [phone] Urine Appearance Cloudy Urine Specific [place] 1.018 N 1.010-1.030 Urine pH 5.0 N [...] [address]: Dante Shelby MD Acct: [id number] Unit: [id number] AGE: 63 Location: [facility] Re03/10/18 SEX: M Status: REG REF SPEC: [id number] FARA: 03/10/[address]: Dante Shelby MD REQ: [id number] RECD: 03/10/18 STATUS: MAGDIEL VERA DR: Cheo Leyva DO _ SOURCE: URINE SPDESC: ORDERED: Urine Culture Procedure Result Reported Site Urine Culture Final 03/11/18- 1345 ML No Growth (<1,000 CFU/mL) * ML - Main Lab . END OF REPORT DEPARTMENT OF PATHOLOGY, [address] [place] [address] James Espinal M.D. Director [facility] # [id number] Procedures Date Code Description Status 04/03/2015 14264 EKG Tracing & Interpretation Completed 04/11/2014 00621 Polysomnography Sleep Staging 4+ Parameters W/Cpap Completed 09/01/2013 87869 Stress Test Completed 09/01/2013 36304 Myocardial Perfusion Imaging Tomographic (Spect) Multiple Completed Studies 08/31/2013 66002 ECHO Transthorasic Realtime 2D W Doppler & Color Flow Hosp Completed 08/30/2013 74784 EKG Tracing & Interpretation Completed Encounters Type Date Location Provider Dx Diagnosis Office Visit 11/02/2018 [facility] Dante Shelby, R10.11 Right upper 11:00a Of Ben DOVE, FACS quadrant pain K42.9 Umbilical hernia without obstruction or gangrene Office Visit 07/22/2018 [facility] Jane G47.33 Obstructive sleep 11:15a [facility] GREG Cortez RN, apnea (adult) [facility] [employer] (pediatric) G47.00 Insomnia, unspecified Office Visit 04/02/2018 9:15a Surgical Dante Giles R10.11 Right upper Associates Of Ben Shelby MD, quadrant pain FACS E66.9 Obesity, unspecified K43.2 Incisional hernia without obstruction or gangrene Office Visit 2018 Surgical Dante Giles M62.00 Separation of muscle 8:30a Associates Of MD Afsaneh, (nontraumatic), [facility] FACS unspecified site K42.9 Umbilical hernia without obstruction or gangrene E66.9 Obesity, unspecified R10.11 Right upper quadrant pain Office Visit 07/22/2017 [facility] Jane G47.33 Obstructive sleep 11:15a [facility]REG Cortez RN, apnea (adult) [facility] [employer]AGE CLERK[employer]BC (pediatric) Office Visit 07/23/2016 [facility] Jane G47.33 Obstructive sleep 11:15a [facility]REG Cortez RN, apnea (adult) [facility] [employer]ERK[employer]BC (pediatric) G47.61 Periodic limb movement disorder G47.00 Insomnia, unspecified J32.9 Chronic sinusitis, unspecified Office Visit 04/03/2015 [place] Bienvenido Clarke, 794.31 Electrocardiogram 11:00a Cardiology Of NELIA Bradley, (ECG) (EKG) Abnormal Fundraiser AT [facility] 272.4 Hyperlipidemia Other Unspec Office Visit 01/04/2015 [facility] Jane 327.23 Obstructive Sleep 11:00a [facility]REG Cortez, ALEJA, Apnea Adult & [facility] Pediatric 327.51 Periodic Limb Movement Disorder Office Visit 12/19/2014 [facility] Kymberly Lara, 784.0 Headache 11:30a Services Of [facility] Kirk Office Visit 10/04/2014 [facility] Jane 327.23 Obstructive Sleep 9:45a Sleep Services Of GREG Cortez, ALEJA, Apnea Adult & [facility] Pediatric 327.51 Periodic Limb Movement Disorder Office Visit 06/23/2014 11:00a [facility] Kymberly Lara, 784.0 Headache Services Of [facility] Kirk 780.52 Insomnia Unspecified 327.23 Obstructive Sleep Apnea Adult & Pediatric Office Visit 04/18/2014 10:00a [facility] Kymberly Lara, 784.0 Headache Services Of [facility] Kirk 780.52 Insomnia Unspecified 355.1 Meralgia Paresthetica Office Visit 01/28/2014 3:24p Sleep Disorder Cristian SK. 327.23 Obstructive Sleep Center Kirk Barnhart Apnea Adult & Pediatric 333.94 Restless Leg Syndrome Office Visit 08/30/2013 [place] Bienvenido Clarke, 794.31 Electrocardiogram 10:15a [facility]iology Of NELIA Bradley, (ECG) (EKG) Abnormal Fundraiser AT [facility] 780.4 Dizziness & Giddiness 786.50 Pain Chest Unspec Plan of Treatment Future Appointment(s):11/25/2018 7:30 am - CHIARA Lindquist at [facility]12/02/2018 11:00 am - Brittany Novak NP at [facility]11/25/2018 7:30 am - Dante Shelby MD, FACS at [facility]07/26/2019 10:00 am - Jane Cortez DNP, RN, [facility] at [facility]11/16/2018 - Barak Caicedo, PAR10.11 Right upper quadrant painK42.9 Umbilical hernia without obstruction or obivzxhxL06.818 Encounter for other preprocedural examination
[2018-11-27] MEDS ORDERED: NS 0.9% 1000 ML** 2,000 ML IV ONE (01:41)
[2018-11-27] MEDS ORDERED: PROCHLORPERAZINE INJ 5 MG/ML 2 ML VIAL IV ONE ×2 (01:42→06:29)
[2018-11-27] MEDS ORDERED: fentaNYL* 50 MCG/ML 2 ML VIAL (100 MCG VIAL) IV SLOW PU ONE (01:43)
--- NOTE | 2018-11-27 03:16 | ED ---
Abdominal Pain/Male - HPI Summary HPI Summary: A 63 y/o male presents to [facility] with a chief complaint of abdominal pain post hernia repair done on 11/25/18. The patient also reports N/V. He reports a laparoscopy done by Dr. Shelby. At triage the patient rated his pain as a 9/10 in severity. He also c/o shaking and chills. - History of Current Complaint Chief Complaint: EDAbdPain Stated Complaint: VOMITING/ABD PAIN/POST SURGERY Hx Obtained From: Patient Onset/Duration: Sudden Onset, Lasting Days, Still Present Timing: Lasting Days Severity Initially: Severe Severity Currently: Severe Pain Intensity: 9 Pain Scale Used: 0-10 Numeric Location: Diffuse Radiates: No Character: Not Applicable Aggravating Factor(s): Nothing Alleviating Factor(s): Nothing Associated Signs And Symptoms: Negative: Fever - Allergies/Home Medications Allergies/Adverse Reactions: Allergies Allergy/AdvReac Type Severity Reaction Status Date / Time morphine Allergy Intermediate Vomiting Verified 11/26/18 23:47 environmental Allergy Congestion Uncoded 11/26/18 23:47 PMH/Surg Hx/FS Hx/Imm Hx Endocrine/Hematology History: Denies: Hx Diabetes, Hx Thyroid Disease Cardiovascular History: Denies: Hx Congestive Heart Failure, Hx Hypertension, Hx Pacemaker/ICD Respiratory History: Reports: Hx Asthma, Hx Seasonal Allergies, Hx Sleep Apnea - current CPAP user Denies: Hx Chronic Obstructive Pulmonary Disease (COPD) GI History: Reports: Hx Gastroesophageal Reflux Disease, Other GI Disorders - acid reflux Denies: Hx Ulcer History: Denies: Hx Renal Disease Musculoskeletal History: Reports: Hx Back Problems - chronic back pain, Other Musculoskeletal History - back pain r/t fall Sensory History: Reports: Hx Contacts or Glasses - glasses Denies: Hx Hearing Aid Opthamlomology History: Reports: Hx Contacts or Glasses - glasses Neurological History: Reports: Hx Nerve Disease - RLS, Other Neuro Impairments/ Disorders - hx vertigo/dizziness Psychiatric History: Denies: Hx Panic Disorder - Cancer History Hx Chemotherapy: No - Surgical History Surgery Procedure, Year, and Place: x2 sinus; neck removal cyst (benign) Hx Anesthesia Reactions: No Infectious Disease History: No Infectious Disease History: Reports: Hx Clostridium Difficile Denies: Hx Hepatitis, Hx Human Immunodeficiency Virus (HIV), Hx of Known/ Suspected MRSA, Hx Shingles, Hx Tuberculosis, Hx Known/Suspected VRE, Hx Known/ Suspected VRSA, History Other Infectious Disease, Traveled Outside the [place] in Last 30 Days - Family History Known Family History: Positive: Other - Emphysema - father. Negative: Cardiac Disease, Diabetes - Social History Alcohol Use: None Hx Substance Use: No Substance Use Type: Reports: None Hx Tobacco Use: No Smoking Status (MU): Never Smoked Tobacco Have You Smoked in the Last Year: No Review of Systems Positive: Chills, Other - positive: shaking. Negative: Fever Positive: Abdominal Pain, Vomiting, Nausea All Other Systems Reviewed And Are Negative: Yes Physical Exam - Summary Physical Exam Summary: Appearance: Well-appearing, Well-nourished, lying in bed comfortably Skin: Warm, dry, no obvious rash Eyes: sclera anicteric, no conjunctival pallor ENT: mucous membranes moist, pharynx appears normal Neck: Supple, nontender Respiratory: Clear to auscultation, no signs of respiratory distress Cardiovascular: Normal S1, S2. No murmurs. Normal distal pulses in tibial and radial bilaterally. Abdomen: Tender in lower abdomen, periumbilical incision, erythema extending in oval pattern just above the pubis to approximately 3-4 cm above the wound with some associated induration. normal active bowel sounds present. Musculoskeletal: Normal, Strength/ROM Intact Neurological: A&Ox3, awake and alert, mentation is normal, speech is fluent and appropriate Psychiatric: affect is normal, does not appear anxious or depressed Triage Information Reviewed: Yes Vital Signs On Initial Exam: Initial Vitals Temp Pulse Resp BP Pulse Ox 97.7 F 77 16 139/94 95 11/26/18 23:40 11/26/18 23:40 11/26/18 23:40 11/26/18 23:40 11/26/18 23:40 Vital Signs Reviewed: Yes Diagnostics - Vital Signs Vital Signs Temp Pulse Resp BP Pulse Ox 11/27/18 02:35 68 153/85 96 11/27/18 02:05 67 144/88 96 11/27/18 02:04 69 97 11/26/18 23:40 97.7 F 77 16 139/94 95 - Laboratory Result Diagrams: 11/29/18 04:51 11/29/18 04:51 Lab Statement: Any lab studies that have been ordered have been reviewed, and results considered in the medical decision making process. - CT abdomen/pelvis CT Interpretation Completed By: Radiologist Summary of CT Findings: 1. There are scattered small foci of pneumoperitoneum noted in the abdomen. Findings may be related to recent surgery however bowel injury is not excluded. radiographically. 2. There are dilated loops of small bowel noted measuring up to 4 CM with a. transition point noted at an umbilical hernia containing high density material. concerning for hemorrhage and multiple foci of subcutaneous emphysema. Findings. are concerning for small bowel obstruction. ED physician has reviewed this imaging report. - EKG 01:56 Cardiac Rate: NL - 65 bpm EKG Rhythm: Sinus Rhythm Summary of EKG Findings: Normal sinus rhythm at 65 bpm with inferior infarct, old. Abdominal Pain Male Course/Dx - Course Course Of Treatment: A 63 y/o male presents to [facility] with a chief complaint of abdominal pain post hernia repair done on 11/25/18. The patient also reports N/ V. He reports a laparoscopy done by Dr. Shelby. At triage the patient rated his pain as a 9/10 in severity. He also c/o shaking and chills. The physical exam recealed the patient was tender in lower abdomen, periumbilical incision, erythema extending in oval pattern just above the pubis to approximately 3-4 cm above the wound with some associated induration.In the ED course the patient was given 10 mg Compazine IV, 8mg Zofran SL, 143 ml Iohexol (contrast) IV and 100mcg Fentanyl IV. EKG at 01:56 revealed Normal sinus rhythm at 65 bpm with inferior infarct, old. Bloodwork and chemistries obtained and are WNL. Abdomen/ pelvis CT impression: 1. There are scattered small foci of pneumoperitoneum noted in the abdomen. Findings may be related to recent surgery however bowel injury is not excluded. radiographically. 2. There are dilated loops of small bowel noted measuring up to 4 CM with a. transition point noted at an umbilical hernia containing high density material. concerning for hemorrhage and multiple foci of subcutaneous emphysema. Findings. are concerning for small bowel obstruction. Discussed case with Dr. Allison, surgery, who will send a surgeon to see the patient in the ED. This patient will be signed out to Dr. Bowling upon shift change at 07:00 11/27/18 pending surgery consult. - Diagnoses Provider Diagnoses: Pneumoperitoneum, Small bowel obstruction - Provider Notifications Discussed Care Of Patient With: Jason Schwed Time Discussed With Above Provider: 06:25 Instructed by Provider To: Other - reports that one of the surgeons will see the patient in the ED. Discharge - Sign-Out/Discharge Documenting (check all that apply): Sign-Out Patient Signing out patient TO: Selam Bowling - pending surgery consult Patient Received Moderate/Deep Sedation with Procedure: No - Discharge Plan Condition: Good - Billing Disposition and Condition Condition: GOOD - Attestation Statements Document Initiated by Kaiden: Yes Documenting Scribe: Bienvenido Hewitt Provider For Whom Kaiden is Documenting (Include Credential): Donny Keller MD Scribe Attestation: Bienvenido Hahn, scribed for Donny Keller MD on 11/30/18 at 1547. Scribe Documentation Reviewed: Yes Provider Attestation: The documentation as recorded by the Bienvenido gutierrez accurately reflects the service I personally performed and the decisions made by me, Donny Keller MD Status of Scribe Document: Viewed
[2018-11-27 04:37] LABS: ABS Basophils 0.1 10^3/ul (0-0.2); ABS Eosinophils 0 10^3/ul (0-0.6); ABS Lymphocytes 1.1 10^3/ul (1.0-4.8); ABS Monocytes 1.2 10^3/ul (0-0.8); ABS Neutrophils 11.1 10^3/ul (1.5-7.7); ABS Nucleated RBC 0 10^3/ul; Eosinophil % 0.1 %; Hematocrit 46 % (42-52); Hemoglobin 15.3 g/dl (14.0-18.0); Lymphocyte % 7.9 %; Mean Corpuscular HGB Conc 33 g/dl (31-36); Mean Corpuscular Hemoglobin 30 pg (27-31); Mean Corpuscular Volume 91 fL (80-94); Mean Platelet Volume 8.2 fL (7.4-10.4); Nucleated Red Blood Cells % 0; Platelet Count 219 10^3/ul (150-450); Red Blood Count 5.05 10^6/ul (4.00-5.40); Red Cell Distribution Width 13 % (10.5-15); White Blood Count 13.4 10^3/ul (3.5-10.8)
[2018-11-27] MEDS ORDERED: fentaNYL* 50 MCG/ML 2 ML VIAL (100 MCG VIAL) IV SLOW PU PRN (04:55)
[2018-11-27 04:56] LABS: ALT 40 U/L (7-52); AST 27 U/L (13-39); Albumin 4.1 g/dL (3.2-5.2); Albumin/Globulin Ratio 1.5 (1-3); Alkaline Phosphatase 54 U/L (34-104); Anion Gap 8 mmol/L (2-11); BUN/Creatinine Ratio 20.2 (8-20); Blood Urea Nitrogen 19 mg/dL (6-24); CO2 Carbon Dioxide 27 mmol/L (22-32); Calcium 9.1 mg/dL (8.6-10.3); Chloride 105 mmol/L (101-111); EGFR African American 98.7 (>60); EGFR Non-African American 81.6 (>60); Globulin 2.7 g/dL (2-4); Glucose 136 mg/dL (70-100); Potassium 3.8 mmol/L (3.5-5.0); Sodium 140 mmol/L (135-145); Total Protein 6.8 g/dL (6.4-8.9)
[2018-11-27] MEDS ORDERED: ceFAZolin 1 GM ADVAN(*) 1 GM in NS 0.9% 50 ML* 50 ML IVPB ONE (04:56)
[2018-11-27] MEDS ORDERED: Ondansetron ODT TAB* 4 MG SL ONE (05:05)
[2018-11-27] MEDS ORDERED: fentaNYL* 50 MCG/ML 2 ML VIAL (100 MCG VIAL) ONE ×2 (05:10→11:53)
[2018-11-27] MEDS ORDERED: Iohexol 300* (CONTRAST) 10 ML SDV IV ONE (05:25)
--- NOTE | 2018-11-27 07:03 | ED ---
Progress - Progress Note Progress Note: Patient is received as a sign out from Dr. Keller to Dr. Rodas at 0700 11/27/18 shift change pending surgical consult. 724 - Dr. Allison in ED at this time, he states that he will admit the patient to OR, states that antibiotics to be given in OR. Course/Dx - Course Course Of Treatment: Patient is received as a sign out from Dr. Keller to Dr. Rodas at 0700 11/27/18 shift change pending surgical consult. 724 - Dr. Allison in ED at this time, he states that he will admit the patient to OR, states that antibiotics to be given in OR. - Diagnoses Provider Diagnoses: Pneumoperitoneum, Small bowel obstruction - Provider Notifications Discussed Care Of Patient With: Jason Allison Time Discussed With Above Provider: 07:25 Instructed by Provider To: Other - 724 - Dr. Allison in ED at this time, he states that he will admit the patient to OR, states that antibiotics to be given in OR. Discharge - Sign-Out/Discharge Documenting (check all that apply): Patient Departure - admit Patient Received Moderate/Deep Sedation with Procedure: No - Discharge Plan Condition: Good Disposition: ADMITTED TO [facility] - Billing Disposition and Condition Condition: GOOD Disposition: Admitted to [facility] - Attestation Statements Document Initiated by Kaiden: Yes Documenting Fortinoibe: JO ANN STOO Provider For Whom Kaiden is Documenting (Include Credential): GABBY RODAS MD Scribe Attestation: JO ANN Hahn scribed for GABBY RODAS MD on 12/02/18 at 0617. Scribe Documentation Reviewed: Yes Provider Attestation: The documentation as recorded by the JO ANN gutierrez accurately reflects the service I personally performed and the decisions made by me, GABBY RODAS MD Status of Scribe Document: Viewed
[2018-11-27] MEDS ORDERED: Famotidine IV* 10 MG/ML 2 ML (20 mg) IV ONE (07:57)
[2018-11-27] MEDS ORDERED: Dexamethasone IV* 4 MG/ML 1 ML (4 MG) IV SLOW PU ONE (07:57)
[2018-11-27] MEDS ORDERED: Buffered Lidocaine 1% SYRIN* 1 ML/SYRINGE INTRADERM ONE (07:57)
[2018-11-27] MEDS ORDERED: Ondansetron INJ* 2 MG/ML VIAL IV ONE (07:57)
[2018-11-27] MEDS ORDERED: NS 0.9% 1000 ML** 1,000 ML IV SCH (08:00)
[2018-11-27] MEDS ORDERED: Lactated Ringers 1000 ML Bag* 1,000 ML IV SCH (08:00)
[2018-11-27] MEDS: rOPINIRole TAB* 1 MG PO SCH ×4 (08:33→21:02)
--- NOTE | 2018-11-27 11:30 | OP ---
Operative Report - Blank - Operative Report Date of Operation: 11/27/18 Note: Brief Operative Note Preop Dx: SBO, secondary to recurrent ventral hernia Postop Dx: same Procedure: open reduction of small bowel; repair recurrent ventral hernia w/ mesh (Ventralex) Anesthesia: GET Surgeon: Afsaneh Staff Assistant: CHIARA Caicedo Fluids: 2200 ml crystalloid EBL: < 20 ml Specimen: none Drains: none Findings: dictated
[2018-11-27] MEDS ORDERED: HYDROmorphone INJ* 0.5 MG/0.5 ML SYRINGE IV SLOW PU PRN ×2 (11:32)
[2018-11-27] MEDS ORDERED: Morphine VIAL* 4 MG/ML VIAL (1 ml vial) ONE (11:53)
[2018-11-27] MEDS: fentaNYL* 50 MCG/ML 2 ML VIAL (100 MCG VIAL) IV PRN ×3 (11:55→12:18)
[2018-11-27] MEDS ORDERED: Naloxone* 0.4 MG/ML 1 ML VIAL IV PRN ×2 (11:56→12:01)
[2018-11-27] MEDS ORDERED: PROCHLORPERAZINE INJ 5 MG/ML 2 ML VIAL IV PRN (11:56)
[2018-11-27] MEDS ORDERED: DiMENhydriNATE IV* 50 MG/ML VIAL IV PUSH PRN (11:56)
[2018-11-27] MEDS ORDERED: HYDROmorphone INJ1* 1 MG/ML SYRINGE IV PRN (12:01)
[2018-11-27] MEDS ORDERED: HYDROmorphone INJ1* 1 MG/ML SYRINGE ONE (12:42)
[2018-11-27] MEDS: Phenol 1.4% Spray* 177 ML BTL MT PRN ×2 (13:16→18:43)
[2018-11-27] MEDS: Lactated Ringers 1000 ML Bag* 1,000 ML IV SCH ×2 (14:57→21:28)
--- NOTE | 2018-11-27 16:39 | OP ---
CC: Primary Care Doctor, Dr. Leyva * DATE OF OPERATION: 11/27/18 - ROOM #335 DATE OF : 59 SURGEON: Royer Shelby MD WATCH ADJUSTER: CHIARA Gupta ANESTHESIOLOGIST: Dr. Stover. ANESTHESIA: General anesthesia. PRE-OP DIAGNOSIS: Small bowel obstruction secondary to recurrent ventral hernia. POST-OP DIAGNOSIS: Small bowel obstruction secondary to recurrent ventral hernia. OPERATIVE PROCEDURE: Open repair of ventral hernia with mesh. ESTIMATED BLOOD LOSS: Less than 20 cc. FLUIDS: 2200 cc of crystalloid fluid. SPECIMENS: None. DRAINS: None. Trujillo catheter inserted and as well as NG tube at the time of surgery. INDICATIONS: Mr. Osei is a 63-year-old gentleman postop day 2 from a diagnostic laparoscopy and open repair of a ventral incisional hernia and umbilical hernia. These were primary repairs. The patient was diagnosed with an early recurrence with small bowel herniation and subsequent small bowel obstruction on workup in the emergency room, I saw the patient and evaluated him. Recommended urgent trip to the operating room for evaluation of minilaparotomy and discussed the possibility of the need for a small bowel resection. I discussed the risks, benefits, and alternatives with the patient going over the possible complications of recurrent hernia, need for additional procedures, need for bowel resection, and a possibility of leak and prolonged hospitalization. The patient's questions were answered and he was marked and consented. DESCRIPTION OF PROCEDURE: The patient was taken to the operating room, placed on the operating table in supine position. Preoperative antibiotics were given and sequential devices were placed in bilateral lower extremities. General anesthesia was induced. The patient according to the anesthesia staff, had copious vomitus that was suctioned out after the placement of the endotracheal tube. An NG tube was then inserted and approximately 1200 cc of bilious fluid was removed. The patient's abdomen was then addressed. Trujillo catheter inserted and then Sterri- Strips that had been placed 2 days prior were removed , and the patient's abdomen was prepped with Betadine in a standard fashion. The patient was draped and a time- out performed. The sutures at the subcutaneous level were cut and I entered into the surgical site at the umbilicus. Some blood clot was identified and this was suctioned off. The umbilical skin was still tacked down to the anterior fascia and this was cut off as well. This exposed our full site of previous surgery. Blood clot fluid was suctioned off. Review of the umbilical suturing showed that this is intact without any damage. The ventral hernia just superior to this was identified. A small knuckle of bowel consistent with a Bell's hernia was identified through this site. This was cleaned off and showed no signs of ischemia. The Ethibond sutures were still in place on either side of the bowel knuckle and these were cut. The left side one seemed to have torn through, but when both of these Ethibond sutures were cut, we were able to easily reduce the small bowel back into the abdomen. We did lift it up first to ensure that it was intact without signs of ischemia. It was intact and then placed back into the abdomen. There was some fluid in the abdomen that was serous and non-foul smelling. This was suctioned off with . We were able to pull some omentum in apposition with the hernia. At this point, I decided to place a mesh and a 6.4 cm Ventralex mesh was utilized on this hernia that appeared to be about close to 2 cm at this time. It was placed into the abdomen and allowed to unfurl and the tails were brought through the hernia and sutured to the anterior fascia superior and inferior with #1 Vicryl stitch. The tails were trimmed to the appropriate size. We did ensure that there was no portions of bowel tucked under the mesh itself and then I closed the defect with interrupted #1 Vicryl stitches. The wound was then irrigated. Hemostasis was achieved. The umbilical skin was again tacked down to the anterior fascia with a 2-0 Vicryl suture. The subcutaneous tissue was sutured with additional 3-0 Vicryl sutures followed by skin leodan. A sterile dressing was applied. The patient tolerated the procedure well, woken up, NG tube was left in place but the Trujillo catheter was removed, and the patient was transferred to the PACU. [id number]/[facility] #: [id number] ASHLEY
[2018-11-27] MEDS: Ketorolac INJ* 30 MG/ML 1 ML VIAL IV PUSH PRN (18:43)
[2018-11-27] MEDS: HYDROmorphone INJ1* 1 MG/ML SYRINGE IV SLOW PU PRN (21:02)
[2018-11-27] MEDS: Amoxicillin/Clavulanate TAB* 875 MG PO SCH (21:02)
[2018-11-28] MEDS: Ketorolac INJ* 30 MG/ML 1 ML VIAL IV PUSH PRN ×4 (02:32→23:46)
[2018-11-28] MEDS ORDERED: Albuterol 2.5 MG/3 ML NEB.SOL* (0.083%) INH PRN (03:59)
[2018-11-28] MEDS ORDERED: Albuterol HFA INHALER* 8 gm MDI INH PRN (03:59)
[2018-11-28] MEDS: Lactated Ringers 1000 ML Bag* 1,000 ML IV SCH ×2 (04:06→11:01)
[2018-11-28] MEDS: HYDROmorphone INJ1* 1 MG/ML SYRINGE IV SLOW PU PRN ×3 (04:23→12:55)
[2018-11-28 05:29] LABS: ABS Basophils 0.1 10^3/ul (0-0.2); ABS Eosinophils 0 10^3/ul (0-0.6); ABS Lymphocytes 2.3 10^3/ul (1.0-4.8); ABS Monocytes 1.4 10^3/ul (0-0.8); ABS Neutrophils 7.5 10^3/ul (1.5-7.7); ABS Nucleated RBC 0 10^3/ul; Eosinophil % 0.2 %; Hematocrit 40 % (42-52); Hemoglobin 13.2 g/dl (14.0-18.0); Lymphocyte % 20.7 %; Mean Corpuscular HGB Conc 33 g/dl (31-36); Mean Corpuscular Hemoglobin 30 pg (27-31); Mean Corpuscular Volume 91 fL (80-94); Mean Platelet Volume 8.3 fL (7.4-10.4); Nucleated Red Blood Cells % 0; Platelet Count 197 10^3/ul (150-450); Red Cell Distribution Width 13 % (10.5-15); White Blood Count 11.3 10^3/ul (3.5-10.8)
[2018-11-28 05:43] LABS: BUN/Creatinine Ratio 22.1 (8-20); Calcium 8.8 mg/dL (8.6-10.3); EGFR African American 97.5 (>60); EGFR Non-African American 80.6 (>60); Potassium 3.8 mmol/L (3.5-5.0)
[2018-11-28] MEDS: Amoxicillin/Clavulanate TAB* 875 MG PO SCH (09:04)
[2018-11-28] MEDS: rOPINIRole TAB* 1 MG PO SCH ×4 (09:04→20:47)
[2018-11-28] MEDS ORDERED: Ondansetron INJ* 2 MG/ML VIAL IV PRN (10:34)
[2018-11-28] MEDS ORDERED: Ketorolac INJ* 15 MG/ML 1 ML VIAL IV PUSH PRN (10:36)
[2018-11-28] MEDS: Famotidine IV* 10 MG/ML 2 ML (20 mg) IV SLOW PU SCH ×2 (11:01→20:47)
--- NOTE | 2018-11-28 11:07 | PN ---
Progress Note - Progress Note Date of Service: 11/28/18 SOAP: Subjective: Main complaint is nausea Minimal po, some flatus Ambulated in halls No SOB Objective: Tmax 101 last night, now afebrile Temp Pulse Resp BP Pulse Ox 98.5 F 83 20 131/65 95 11/28/18 07:36 11/28/18 07:36 11/28/18 09:15 11/28/18 07:36 11/28/18 07:36 Intake & Output 11/26/18 11/27/18 11/28/18 11/29/18 06:59 06:59 06:59 06:59 Intake Total 5970 Output Total 750 Balance 5220 Weight 245 lb 245 lb Intake: IV Fluids 5970 LR 5970 Oral 0 Output: NG Tube Drainage Amount 150 Urine 600 PEX: Comfortable Lungs clear with decreased breath sounds at bases. No rales, a few expiratory wheezes ABd is distended and slightly firm. A few bowel sounds present. Dressing intact. Laboratory Results - last 24 hr 11/28/18 11/28/18 05:10 05:10 WBC 11.3 H RBC 4.40 Hgb 13.2 L Hct 40 L MCV 91 MCH 30 MCHC 33 RDW 13 Plt Count 197 MPV 8.3 Neut % (Auto) 66.4 Lymph % (Auto) 20.7 [place] % (Auto) 12.1 Eos % (Auto) 0.2 Baso % (Auto) 0.6 Absolute Neuts (auto) 7.5 Absolute Lymphs (auto) 2.3 Absolute Monos (auto) 1.4 H Absolute Eos (auto) 0 Absolute Basos (auto) 0.1 Absolute Nucleated RBC 0 Nucleated RBC % 0 Sodium 139 Potassium 3.8 Chloride 104 Carbon Dioxide 31 Anion Gap 4 BUN 21 Creatinine 0.95 Est GFR ( Amer) 97.5 Est GFR (Non-Af Amer) 80.6 BUN/Creatinine Ratio 22.1 H Glucose 117 H Calcium 8.8 Assessment: S/P return to OR for repair of incarcerated incisional hernia/SBO Ileus Asthma Plan: Pul toilet Minimal po IVF Check labs in AM Poor po intake-not ready for d/c
[2018-11-28] MEDS ORDERED: ZOSYN 3.375 GM x ONE DOSE over 30 miuntes IVPB ×2 (13:30)
[2018-11-28] MEDS: NS 0.9% 1000 ML** 1,000 ML IV SCH ×2 (15:31→23:42)
[2018-11-28] MEDS: Piperacillin/Tazobac ADVAN(*) 3.375 GM in NS 0.9% 100 ML* 100 ML IVPB SCH (18:04)
[2018-11-29] MEDS: Piperacillin/Tazobac ADVAN(*) 3.375 GM in NS 0.9% 100 ML* 100 ML IVPB SCH ×3 (01:56→18:01)
[2018-11-29] MEDS: rOPINIRole TAB* 1 MG PO SCH ×4 (01:56→20:00)
[2018-11-29 05:09] LABS: ABS Basophils 0 10^3/ul (0-0.2); ABS Eosinophils 0.2 10^3/ul (0-0.6); ABS Lymphocytes 1.8 10^3/ul (1.0-4.8); ABS Monocytes 0.9 10^3/ul (0-0.8); ABS Nucleated RBC 0 10^3/ul; Hematocrit 37 % (42-52); Hemoglobin 12.4 g/dl (14.0-18.0); Lymphocyte % 26.1 %; Mean Corpuscular HGB Conc 33 g/dl (31-36); Mean Corpuscular Hemoglobin 31 pg (27-31); Mean Corpuscular Volume 92 fL (80-94); Mean Platelet Volume 8.1 fL (7.4-10.4); Nucleated Red Blood Cells % 0.1; Platelet Count 184 10^3/ul (150-450); Red Blood Count 4.05 10^6/ul (4.00-5.40); Red Cell Distribution Width 13 % (10.5-15); White Blood Count 6.9 10^3/ul (3.5-10.8)
[2018-11-29 05:27] LABS: Calcium 7.7 mg/dL (8.6-10.3); EGFR African American 91.9 (>60); Potassium 3.9 mmol/L (3.5-5.0)
[2018-11-29] MEDS: HYDROmorphone INJ1* 1 MG/ML SYRINGE IV SLOW PU PRN (05:36)
[2018-11-29] MEDS: NS 0.9% 1000 ML** 1,000 ML IV SCH ×2 (07:45→20:00)
--- NOTE | 2018-11-29 08:04 | PN ---
Progress Note - Progress Note Date of Service: 11/29/18 Note: S/P repair incarcerated umbil hernia w/ obstr. Afeb, VS noted voiding well, No stool or flatus, No N/V, though still feels bloated Pain better Abd obese soft, still distended, still with tympany, has BS Await increase GI function
[2018-11-29] MEDS: Famotidine IV* 10 MG/ML 2 ML (20 mg) IV SLOW PU SCH ×2 (09:32→20:00)
[2018-11-29] MEDS: Ketorolac INJ* 30 MG/ML 1 ML VIAL IV PUSH PRN ×2 (09:36→17:26)
[2018-11-30] MEDS: rOPINIRole TAB* 1 MG PO SCH ×4 (01:45→20:30)
[2018-11-30] MEDS: Piperacillin/Tazobac ADVAN(*) 3.375 GM in NS 0.9% 100 ML* 100 ML IVPB SCH (01:45)
[2018-11-30] MEDS: Ketorolac INJ* 30 MG/ML 1 ML VIAL IV PUSH PRN ×2 (04:41→17:28)
[2018-11-30] MEDS: Ondansetron INJ* 2 MG/ML VIAL IV PRN ×3 (04:41→20:30)
[2018-11-30] MEDS: Famotidine IV* 10 MG/ML 2 ML (20 mg) IV SLOW PU SCH (08:01)
[2018-11-30] MEDS: NS 0.9% 1000 ML** 1,000 ML IV SCH (08:10)
[2018-11-30] MEDS ORDERED: Zolpidem TAB* 10 MG PO PRN (08:26)
[2018-11-30] MEDS ORDERED: ROPINIROLE HCL 1 MG PO SCH (08:30)
--- NOTE | 2018-11-30 08:33 | PN ---
Progress Note - Progress Note Date of Service: 11/30/18 SOAP: Subjective: Pr seen and examined. Feeling better. Large BM earlier today. nausea earlier. positiveflatus. Ambulating. increasing appetite. no SOB Objective: Temp Pulse Resp BP Pulse Ox 97.8 F 58 20 124/55 97 11/30/18 07:36 11/30/18 07:36 11/30/18 07:36 11/30/18 07:36 11/30/18 07:36 Intake & Output 11/29/18 11/30/18 11/30/18 22:59 06:59 14:59 Intake Total 1152 850 931 Output Total 725 215 Balance 427 635 931 a and o x3, nad lungs clear b/l abdo: soft/ obese/ distended/ hypoactive BS/ nontender dressing changed, nonoblanching redness; no drainage; binder in place ext wnl Assessment: POD 3 repair of ventral hernia, resolving ileus Plan: advance diet PO meds subQ hep d/c planning may shower
[2018-11-30] MEDS ORDERED: BUDESONIDE BOTH NARES SCH (09:00)
[2018-11-30] MEDS ORDERED: Omeprazole CAP (NF) 20 MG CAP.DR PO SCH (09:00)
[2018-11-30] MEDS: Pantoprazole TAB * 40 MG TAB PO SCH (09:14)
[2018-11-30] MEDS: Amoxicillin/Clavulanate TAB* 875 MG PO SCH ×2 (09:14→20:30)
[2018-11-30] MEDS ORDERED: rOPINIRole TAB* 1 MG PO SCH (12:00)
[2018-11-30] MEDS: Heparin VIAL(*) 5000 UNITS/ML VIAL (FIVE THOUSAND) SUBCUT SCH ×2 (14:21→21:50)
[2018-12-01] MEDS: rOPINIRole TAB* 1 MG PO SCH ×4 (01:56→19:53)
[2018-12-01] MEDS: Ondansetron INJ* 2 MG/ML VIAL IV PRN ×2 (04:52→19:56)
[2018-12-01] MEDS: Ketorolac INJ* 30 MG/ML 1 ML VIAL IV PUSH PRN ×3 (04:54→19:58)
[2018-12-01] MEDS: Heparin VIAL(*) 5000 UNITS/ML VIAL (FIVE THOUSAND) SUBCUT SCH ×3 (05:40→21:21)
[2018-12-01] MEDS: Pantoprazole TAB * 40 MG TAB PO SCH (08:05)
[2018-12-01] MEDS: Amoxicillin/Clavulanate TAB* 875 MG PO SCH ×2 (08:05→19:54)
[2018-12-01] MEDS: Fluticasone NASAL SPRAY 50MCG* 16 gm SPRAY BTL BOTH NARES SCH (08:05)
--- NOTE | 2018-12-01 11:48 | PN ---
Progress Note - Progress Note Date of Service: 12/01/18 SOAP: Subjective: pt seen and examined. no flatus this am. no burping, no hiccoughs, but positive nausea, no vomiting upper abdo pain Objective: Temp Pulse Resp BP Pulse Ox 97.5 F 58 16 146/61 98 12/01/18 07:32 12/01/18 07:32 12/01/18 08:00 12/01/18 07:32 12/01/18 07:32 Intake & Output 11/30/18 12/01/18 12/01/18 22:59 06:59 14:59 Intake Total 660 210 Output Total 660 450 Balance 0 -450 210 a and o x3, nad abdo: soft/ obese/ tender at upper abdomen, no rebound dressing removed, staple line intact, no erythema ext wnl Assessment: pod 4 repair of ventral hernia Plan: continue same management possible d/c tomorrow
[2018-12-01 11:58] LABS: ABS Basophils 0 10^3/ul (0-0.2); ABS Eosinophils 0.3 10^3/ul (0-0.6); ABS Lymphocytes 1.5 10^3/ul (1.0-4.8); ABS Monocytes 0.8 10^3/ul (0-0.8); ABS Neutrophils 3.2 10^3/ul (1.5-7.7); ABS Nucleated RBC 0 10^3/ul; Eosinophil % 5.7 %; Hematocrit 38 % (42-52); Hemoglobin 12.8 g/dl (14.0-18.0); Mean Corpuscular HGB Conc 33 g/dl (31-36); Mean Corpuscular Hemoglobin 30 pg (27-31); Mean Corpuscular Volume 90 fL (80-94); Mean Platelet Volume 7.6 fL (7.4-10.4); Nucleated Red Blood Cells % 0; Platelet Count 217 10^3/ul (150-450); Red Blood Count 4.24 10^6/ul (4.00-5.40); Red Cell Distribution Width 13 % (10.5-15); White Blood Count 5.8 10^3/ul (3.5-10.8)
[2018-12-01 12:31] LABS: BUN/Creatinine Ratio 14.6 (8-20); EGFR African American 105.1 (>60); EGFR Non-African American 86.9 (>60); Magnesium 1.8 mg/dL (1.9-2.7); Phosphorus 2.8 mg/dL (2.5-5.0); Potassium 3.9 mmol/L (3.5-5.0)
[2018-12-01] MEDS ORDERED: Potassium Phosphate IV* 15 MMOLE in NS 0.9% 250 ML* 250 ML IVPB ONE (15:16)
[2018-12-01] MEDS ORDERED: Magnesium Oxide TAB* 400 MG PO ONE (15:17)
[2018-12-01] MEDS ORDERED: Magnesium Sulfate 1 GM IV* 1 GM/100 ML BAG IV ONE (15:35)
[2018-12-01] MEDS: Lactobacillus Acidophilus* 1 TAB PO SCH (19:54)
[2018-12-02] MEDS: oxyCODONE/Acetamin 5/325 MG* TAB PO PRN (01:12)
[2018-12-02] MEDS: Ondansetron INJ* 2 MG/ML VIAL IV PRN ×3 (01:13→20:24)
[2018-12-02] MEDS: rOPINIRole TAB* 1 MG PO SCH ×4 (01:16→20:58)
[2018-12-02] MEDS: Heparin VIAL(*) 5000 UNITS/ML VIAL (FIVE THOUSAND) SUBCUT SCH ×3 (05:40→22:14)
[2018-12-02] MEDS: Ketorolac INJ* 30 MG/ML 1 ML VIAL IV PUSH PRN (05:41)
[2018-12-02] MEDS: Amoxicillin/Clavulanate TAB* 875 MG PO SCH ×2 (08:35→20:58)
[2018-12-02] MEDS: Pantoprazole TAB * 40 MG TAB PO SCH (08:36)
[2018-12-02] MEDS: Lactobacillus Acidophilus* 1 TAB PO SCH ×2 (08:36→20:58)
[2018-12-02] MEDS: Fluticasone NASAL SPRAY 50MCG* 16 gm SPRAY BTL BOTH NARES SCH (08:36)
--- NOTE | 2018-12-02 09:50 | PN ---
Progress Note - Progress Note Date of Service: 12/02/18 SOAP: Subjective: Pt seen and examined. Feels worse today. nausea, no vomiting, no flatus 2 days Objective: Temp Pulse Resp BP Pulse Ox 98.6 F 61 17 124/67 94 12/02/18 07:16 12/02/18 07:16 12/02/18 07:16 12/02/18 07:16 12/02/18 07:16 a and o x3, mild distress lungs clear abdo: soft/ distended/ obese/ nontender normoactive BS ext wnl med reviewed Assessment: POD 5 repair of incarcerated ventral hernia, ileus vs sbo Plan: axr clear diet pain control IV PPI
[2018-12-02] MEDS ORDERED: D5W 1/2 NS KCl 20 Meq 1000 ML* 1,000 ML IV SCH (10:00)
[2018-12-02] MEDS: HYDROmorphone INJ1* 1 MG/ML SYRINGE IV SLOW PU PRN ×2 (15:52→20:24)
[2018-12-03] MEDS: rOPINIRole TAB* 1 MG PO SCH ×4 (02:07→19:49)
[2018-12-03] MEDS: Ondansetron INJ* 2 MG/ML VIAL IV PRN ×3 (04:44→16:48)
[2018-12-03] MEDS: Heparin VIAL(*) 5000 UNITS/ML VIAL (FIVE THOUSAND) SUBCUT SCH ×3 (06:40→21:50)
[2018-12-03] MEDS: D5W 1/2 NS KCl 20 Meq 1000 ML* 1,000 ML IV SCH ×2 (06:42→21:52)
[2018-12-03] MEDS: Fluticasone NASAL SPRAY 50MCG* 16 gm SPRAY BTL BOTH NARES SCH (08:46)
[2018-12-03 08:47] LABS: ABS Basophils 0 10^3/ul (0-0.2); ABS Eosinophils 0.2 10^3/ul (0-0.6); ABS Lymphocytes 1.6 10^3/ul (1.0-4.8); ABS Monocytes 0.7 10^3/ul (0-0.8); ABS Neutrophils 3.3 10^3/ul (1.5-7.7); ABS Nucleated RBC 0 10^3/ul; Eosinophil % 3.1 %; Hematocrit 40 % (42-52); Hemoglobin 13.2 g/dl (14.0-18.0); Lymphocyte % 27.9 %; Mean Corpuscular HGB Conc 33 g/dl (31-36); Mean Corpuscular Hemoglobin 30 pg (27-31); Mean Corpuscular Volume 91 fL (80-94); Mean Platelet Volume 8.4 fL (7.4-10.4); Nucleated Red Blood Cells % 0.1; Platelet Count 222 10^3/ul (150-450); Red Blood Count 4.37 10^6/ul (4.00-5.40); Red Cell Distribution Width 13 % (10.5-15); White Blood Count 5.8 10^3/ul (3.5-10.8)
[2018-12-03] MEDS: Pantoprazole TAB * 40 MG TAB PO SCH (08:47)
[2018-12-03] MEDS: Amoxicillin/Clavulanate TAB* 875 MG PO SCH ×2 (08:47→21:50)
[2018-12-03] MEDS: Lactobacillus Acidophilus* 1 TAB PO SCH ×2 (08:47→21:50)
[2018-12-03 09:12] LABS: BUN/Creatinine Ratio 11.9 (8-20); Calcium 8.3 mg/dL (8.6-10.3); EGFR African American 112.4 (>60); EGFR Non-African American 92.9 (>60); Phosphorus 2.3 mg/dL (2.5-5.0)
[2018-12-03] MEDS ORDERED: Iohexol 300* (CONTRAST) 10 ML SDV IV ONE (10:05)
--- NOTE | 2018-12-03 10:42 | PN ---
Progress Note - Progress Note Date of Service: 12/03/18 SOAP: Subjective: Pt seen and examined. Walking around. continued intermittent nausea; no vomiting. abdominal pain. some flatus this am Objective: af vss uo good no BM a and o x3, nad abdo: distended/ tender at incision and upper abdo, no rebound decreased redness; staple line intact ext wnl labs noted Assessment: pod6 ventral hernia repair, ilues vs sbo Plan: ct scan today pain control ngt if vomits pt aware of plan
[2018-12-03] MEDS: oxyCODONE/Acetamin 5/325 MG* TAB PO PRN (19:54)
[2018-12-04] MEDS: rOPINIRole TAB* 1 MG PO SCH ×4 (02:45→20:31)
[2018-12-04] MEDS: Heparin VIAL(*) 5000 UNITS/ML VIAL (FIVE THOUSAND) SUBCUT SCH ×3 (06:05→22:52)
[2018-12-04] MEDS: Lactobacillus Acidophilus* 1 TAB PO SCH ×2 (08:16→20:31)
[2018-12-04] MEDS: Fluticasone NASAL SPRAY 50MCG* 16 gm SPRAY BTL BOTH NARES SCH (08:17)
[2018-12-04] MEDS: Amoxicillin/Clavulanate TAB* 875 MG PO SCH (08:17)
[2018-12-04] MEDS: Pantoprazole TAB * 40 MG TAB PO SCH (08:18)
--- NOTE | 2018-12-04 10:59 | PN ---
Progress Note - Progress Note Date of Service: 12/04/18 SOAP: Subjective: Patient seen and examined. He is feeling better today. No nausea or vomiting. Minimal flatus. Medium-size bowel movement yesterday. Patient continues with abdominal pain mostly in the upper abdomen although it is less today. He has been ambulating without difficulty. Objective: Alert and oriented 3, in no apparent distress Abdomen: Soft, mild distention, minimal tenderness at the incision site. Staple lines intact with receding erythema. Lower abdomen ecchymosis and edema at the flanks. Rectal exam not performed. Extremities within normal limits CT scan from yesterday reviewed with patient yesterday. This was consistent with likely resolving ileus. Assessment: Postoperative day seven, ventral hernia repair with mesh, resolving ileus, continued abdominal pain. Plan: Advance diet DC antibiotics Degenerative fluids Possible DC home later today versus tomorrow [facility] to cover me until Friday
[2018-12-04] MEDS: oxyCODONE/Acetamin 5/325 MG* TAB PO PRN ×2 (14:35→23:02)
[2018-12-05] MEDS: rOPINIRole TAB* 1 MG PO SCH ×2 (02:38→07:46)
[2018-12-05] MEDS: Heparin VIAL(*) 5000 UNITS/ML VIAL (FIVE THOUSAND) SUBCUT SCH (06:06)
[2018-12-05] MEDS: Lactobacillus Acidophilus* 1 TAB PO SCH (07:46)
[2018-12-05] MEDS: Pantoprazole TAB * 40 MG TAB PO SCH (07:46)
[2018-12-05] MEDS: Fluticasone NASAL SPRAY 50MCG* 16 gm SPRAY BTL BOTH NARES SCH (07:46)
[2018-12-05] MEDS: oxyCODONE/Acetamin 5/325 MG* TAB PO PRN (07:54)
[2018-12-05 08:07] VITALS: BP 111/61
--- NOTE | 2018-12-05 09:13 | PN ---
Progress Note - Progress Note Date of Service: 12/05/18 SOAP: Subjective: Multiple loose BM's overnight Tolerating liquids, want some food Minimal pain Objective: Temp Pulse Resp BP Pulse Ox 97.9 F 61 16 111/61 94 12/05/18 08:04 12/05/18 08:04 12/05/18 08:04 12/05/18 08:04 12/05/18 08:04 Intake & Output 12/03/18 12/04/18 12/05/18 12/06/18 06:59 06:59 06:59 06:59 Intake Total 2044 1760 2270 Output Total 1350 3100 1775 Balance 694 -1340 495 Intake: IV Fluids 984 960 d51/2ns 20k 984 960 Oral 8952 094 9812 Output: Urine 1350 3100 1775 Other: Date of Last Bowel 12/04/18 12/04/2018 Movement # Bowel Movements 2 Estimated Stool Amount Small Medium PEX: Comfortable Lungs are clear Abd is soft and slightly distended. Incision CDI Bowel sounds present Assessment: S/P repair of ventral hernia with mesh Ileus-resolved Plan: D/C home today Instructions given Advance diet Outpatient follow up
== END 2018-12-05 10:00 | disposition home or self-care (01) | DRG 227 ==
LOC: ED 23:36 → OR 11-27 08:45 → ED 11-27 08:47 → SSU 11-27 11:30
PROVIDERS: ADMIT Surgery; ATTEND Surgery
PROC: 0WUF0JZ Supplement Abdominal Wall with Synthetic Substitute, Open Approach (ICD-10-PCS; principal; 2018-11-27 10:30)
DX: K43.0 Incisional hernia with obstruction, without gangrene (principal); K56.7 Ileus, unspecified; J45.909 Unspecified asthma, uncomplicated; G47.33 Obstructive sleep apnea (adult) (pediatric); K21.9 Gastro-esophageal reflux disease without esophagitis; E66.9 Obesity, unspecified; K42.0 Umbilical hernia with obstruction, without gangrene; G89.29 Other chronic pain; M54.9 Dorsalgia, unspecified; Z88.5 Allergy status to narcotic agent; Z83.6 Family history of other diseases of the respiratory system; Z68.38 Body mass index [BMI] 38.0-38.9, adult
CPT/HCPCS: 36415; 74019; 74177; 80048; 80053; 83690; 83735; 84100; 84484; 85025; 93005; 94640; 94660; 99283; A9270-GY; C1781; J0330; J0690; J0780; J1100; J1170; J1644; J1885; J2250; J2270; J2405; J2543; J2704; J2795; J3010; J3475; J3490; Q9967